=== PATIENT | female | born 1990 | race Caucasian/White ===

== ENCOUNTER 2016-09-21 12:35 | Emergency (ER) | payer BC ==
[2016-09-21 13:00] LABS: BASO # 0.1 K/mm3 (0.0-0.2); BASO % 0.6 % (0.2-1.0); EOS % 0.1 % (0.9-2.9); HEMATOCRIT 43.1 % (37.0-47.0); HEMOGLOBIN 14.5 gm/l (12.0-16.0); IMM NEUT% 0.3 % (0-1); LYMPH # 1.6 (1.0-4.8); LYMPH % 17.2 % (15-45); MEAN CELL VOLUME 91.3 fl (81.0-99.0); MEAN CORPUSCULAR HEMOGLOBIN 30.7 pg (27.0-31.0); MEAN CORPUSCULAR HGB CONC 33.6 g/dl (33.0-37.0); MEAN PLATELET VOLUME 10.7 fl (7.4-10.4); MONO # 0.4 (0.0-0.8); MONO % 4.7 % (4-12); NEUT % 77.1 % (43-75); PLATELET COUNT 235 K/mm3 (130-400); URINE APPEARANCE CLEAR; URINE BILIRUBIN NEGATIVE (NEGATIVE); URINE BLOOD NEGATIVE (NEGATIVE); URINE COLOR YELLOW; URINE GLUCOSE (UA) NEGATIVE (NEGATIVE); URINE LEUKOCYTE ESTERASE NEGATIVE (NEGATIVE); URINE NITRITE NEGATIVE (NEGATIVE); URINE PROTEIN NEGATIVE (NEGATIVE); URINE UROBILINOGEN NORMAL (0-1 mg/dl)
[2016-09-21 13:17] LABS: ALB/GLOB RATIO 1.3 (>1.0); CALCIUM 9.2 mg/dL (8.6-10.3)
--- NOTE | 2016-09-21 16:23 | US ---
LIMITED ABDOMINAL ULTRASOUND HISTORY: Right lower quadrant pain. Limited sonography of the right lower quadrant performed, with graded compression. APPENDIX: Not visualized. FREE FLUID: None. REGIONAL BOWEL: Normal peristalsis. Compressible. REGIONAL MASS EFFECT: None. IMPRESSION: Nonvisualization of the appendix; no free fluid or regional mass effect. If there is continued concern for appendicitis, consider CT imaging. Results were electronically transmitted to the electronic medical record at 09/21/2016 at 1619 hours.
--- NOTE | 2016-09-21 16:25 | US ---
OB ULTRASOUND LESS THAN 14 WEEKS HISTORY: Suprapubic pain and right lower quadrant pain, 6 weeks 4 days Transabdominal and transvaginal obstetric ultrasound was performed. FINDINGS: INTRAUTERINE GESTATION: Present. MEAN SAC DIAMETER: 1.9 cm, corresponding to an age of 6 weeks 3 days. Normal sac morphology and fluid volume. CROWN-RUMP LENGTH: 0.62 cm, corresponding to an age of 6 weeks 3 days. CARDIAC ACTIVITY: Present, with a heart rate of 124 beats per minute. SONOGRAPHIC MEAN GESTATIONAL AGE: 6 weeks 3 days. SONOGRAPHIC EDC: 05/14/2017. YOLK SAC: Present. RONALDO-GESTATIONAL HEMORRHAGE: Not identified. RIGHT OVARY: 3.8 x 1.9 x 2.5 cm. LEFT OVARY: 2.1 x 1.6 x 2.0 cm. FOCAL ADNEXAL LESIONS:None. OVARIAN BLOOD FLOW: Documented bilaterally. FREE FLUID: None. IMPRESSION: 1. Single live intrauterine gestation sonographically dating 6 weeks 3 days, near concordant with clinical dates. 2. No perigestational hemorrhage, dominant adnexal lesion, or free fluid. Results were electronically transmitted to the electronic medical record at 09/21/2016 at 1621 hours.
== END 2016-09-21 16:49 | disposition home or self-care (01) ==
LOC: ED 12:35
DX: O20.0 Threatened abortion (principal); Z3A.01 Less than 8 weeks gestation of pregnancy